=== PATIENT | female | born 1960 | race Caucasian/White ===

== ENCOUNTER 2021-02-07 15:14 | Outpatient (CLI) | payer OTHER, SELFPAY ==
--- NOTE | 2021-02-07 15:21 | MM_ITS ---
WS: [id number] BILATERAL SCREENING DIGITAL MAMMOGRAM WITH CAD HISTORY: SCREENING COMPARISON: 09/22/2016 Bilateral CC and MLO views submitted. Computer aided detection analyzed. Breast composition: There are scattered areas of fibroglandular density. No suspicious masses, microc alcifications or architectural distortion. Benign calcification anterior RIGHT breast. MM/[id number] IMPRESSION: BI-RADS: 2-Benign FOLLOW UP: 1 Year Follow-up
== END 2021-02-07 15:15 | disposition home or self-care (01) ==
PROVIDERS: PCP Physician Assistant; Visit Provider Physician Assistant
DX: Z12.31 Encounter for screening mammogram for malignant neoplasm of breast (principal)
CPT/HCPCS: 77067

== ENCOUNTER 2022-02-23 20:24 | Inpatient (IN) | payer OTHER, SELFPAY ==
[2022-02-23 20:40] VITALS: BMI 25.0
--- NOTE | 2022-02-23 21:13 | ED.C_ITS ---
Documented by User: BLANCA Hannah 02/24/22 01:06 HPI - Psych General: Chief Complaint: Psychiatric Symptoms Stated Complaint: SI Time Seen by Provider: 02/23/22 21:05 History of Present Illness: Patient is a 61-year-old female comes to the ED with worsening depression and SI. Patient has been having symptoms now for the past couple weeks. She has lost her and her family is currently having some issues and her children are fighting. She states that she cannot deal with everything with going on anymore and she needs help. She is having thoughts of SI. Endorses poor sleep, increased depression, loss of interest and anxiety. Patient says she had a past suicidal attempt right after her . She is currently on an antidepressant and takes trazodone at night to help with sleep. Endorses having 3 drinks of alcohol before coming to the ED. Denies any other drug use. Associated symptoms: Reports depression and suicidal ideation Review of Systems Const: Denies: fever(s), chills or fatigue Eyes: Denies: change in vision or eye discomfort ENMT: Denies: throat pain, odynophagia, nasal discharge or nasal congestion Card: Denies: chest pain, palpitations, edema, swelling of feet/ankles, dyspnea on exertion or orthopnea Resp: Denies: dyspnea, productive cough or non-productive cough GI: Denies: abdominal pain, nausea, vomiting, diarrhea, constipation or hematochezia : Denies: flank pain, dysuria or hematuria Musc: Denies: neck pain, back pain or extremity swelling Skin/Breast: Denies: rash or new lesions Neuro: Denies: headache(s), numbness in extremities or weakness in extremities Psych: Reports: anxiety, depression, panic attacks, sleeping less, loss of interest and suicidal ideation [facility] ED PFSH: Medical History (Updated 03/06/22 @ 15:15 by Sosa Page) Anxiety Depression Psychiatric care Surgical History No pertinent past surgical history Physical Exam Const: COMMON NORMALS: patient oriented x3 and alert GENERAL APPEARANCE: cooperative, anxious and odor of alcohol detected HENMT: COMMON NORMALS: normocephalic HEAD & SCALP: normocephalic MOUTH: Normal oral and palatal mucosa present THROAT: posterior oropharynx normal and uvula midline Eye: COMMON NORMALS: Equal, round and reactive pupils present and conjunctivae normal CONJUNCTIVA: Yes conjunctivae normal PUPIL: Yes Equal, round and reactive pupils present Neck/C-Spine: COMMON NORMALS: supple GENERAL: Yes normal visual inspection Resp: COMMON NORMALS: normal respiratory effort, No retractions, No use of accessory muscles and clear to auscultation bilaterally AUSCULTATION: clear to auscultation bilaterally Cardio: COMMON NORMALS: regular rate, regular rhythm, S1 normal heart sound present, S2 normal heart sound present, No gallops present (Cardio), No clicks present (Cardio), No murmurs present (Cardio) and Peripheral pulses 2+ throughout RATE: regular rate RHYTHM: regular rhythm HEART SOUNDS: S1 normal heart sound present and S2 normal heart sound present PERIPHERAL PULSES: Peripheral pulses 2+ throughout GI: COMMON NORMALS: Normal to inspection, nondistended, normoactive bowel sounds present, Soft to palpation, non-tender and no masses PALPATION: Yes Soft to palpation : COMMON NORMALS: Yes no CVA tenderness BLADDER/KIDNEY EXAM: Yes no CVA tenderness Back/Pelvis: COMMON NORMALS: no CVA tenderness Extremity: COMMON NORMALS: normal to inspection Neuro: COMMON NORMALS: patient oriented x3 SENSORIUM/ORIENTATION: Yes alert GAIT: Yes Normal gait present Psych: COMMON NORMALS: mental status grossly normal, Normal thought process present and speech normal APPEARANCE: Yes grossly normal ATTITUDE: Yes engaged ACTIVITY/MOTOR BEHAVIOR: Yes appropriate eye contact SPEECH: Yes normal speech MOOD & AFFECT: Yes anxious and Yes tearful THOUGHT PROCESS: Normal thought process present THOUGHT CONTENT: Yes Suicidality present ATTENTION/CONCENTRATION: Yes attention grossly intact and Yes concentration grossly intact MEMORY/COGNITION: Yes memory grossly intact and Yes cognition grossly intact Skin: GENERAL SKIN EXAM: dry skin Course Consultations: Consultation #1: I contacted Dr. Mijares and told him about patient case and he agreed to have patient admitted to the NPU Vital Signs: Vital signs: Vital Signs Temperature 98.2 F 02/27/22 14:22 Pulse Rate 79 02/27/22 14:22 Respiratory Rate 15 02/27/22 14:22 Blood Pressure 110/62 02/27/22 14:22 Pulse Oximetry 97 02/27/22 14:22 Oxygen Delivery Me thod 02/27/22 14:00 MDM - Psych Medical Decision Making Patient is a 61-year-old female comes to the ED with worsening depression and SI. All prescreening labs performed. Patient was cooperative and wants to be admitted to get help. I contacted Dr. Mijares and told about patient case and he agreed to have patient admitted to the NPU. Dr. Reyes placed the admitting orders. Lab Data I reviewed the patient's lab results. : 02/23/22 22:00 02/23/22 22:00 Laboratory Results WBC 12.2 10^3/uL (4.0-10.0) H 02/23/22 22:00 RBC 5.02 10^6/uL (4.1-5.3) 02/23/22 22:00 Hgb 16.1 g/dL (11.5-15.3) H 02/23/22 22:00 Hct 47.6 % (37.0-47.0) H 02/23/22 22:00 MCV 94.8 fl (81-99) 02/23/22 22:00 MCH 32.1 pg (28.0-34.0) 02/23/22 22:00 MCHC 33.8 g/dL (30.0-36.0) 02/23/22 22:00 RDW 13.8 % (12.1-15.1) 02/23/22 22:00 Plt Count 241 10^3/cmm (130-400) 02/23/22 22:00 MPV 8.8 fL (7.4-10.4) 02/23/22 22:00 Neut % (Auto) 70.5 % 02/23/22 22:00 Lymph % (Auto) 20.9 % 02/23/22 22:00 [place] % (Auto) 6.6 % 02/23/22 22:00 Eos % (Auto) 1.2 % 02/23/22 22:00 Baso % (Auto) 0.5 % 02/23/22 22:00 Neut # (Auto) 8.60 10^3/uL (1.8-7.7) H 02/23/22 22:00 Lymph # (Auto) 2.6 10^3/uL (0.8-4.8) 02/23/22 22:00 [place] # (Auto) 0.8 10^3/uL (0.2-0.9) 02/23/22 22:00 Eos # (Auto) 0.2 10^3/uL (0.0-0.8) 02/23/22 22:00 Baso # (Auto) 0.1 10^3/uL (0.0-0.1) 02/23/22 22:00 Nucleated RBC % (auto) 0 % 02/23/22 22:00 Nucleated RBCs # 0.0 /100WBC 02/23/22 22:00 Sodium 140 mmol/L (136-145) 02/23/22 22:00 Potassium 3.5 mmol/L (3.5-5.1) 02/23/22 22:00 Chloride 105 mmol/L (98-107) 02/23/22 22:00 Carbon Dioxide 20 mmol/L (22-29) L 02/23/22 22:00 Anion Gap 18.5 (5-19) 02/23/22 22:00 BUN 19 mg/dL (6-20) 02/23/22 22:00 Creatinine 0.5 mg/dL (0.5-0.9) 02/23/22 22:00 GFR Calculation 126.3 mL/min (90-130) 02/23/22 22:00 Glucose 111 mg/dL (65-115) 02/23/22 22:00 Calculated Osmolality 293 mOsm/kg (285-295) 02/23/22 22:00 Calcium 9.1 mg/dL (8.5-10.5) 02/23/22 22:00 Total Bilirubin 0.2 mg/dL (0.15-1.2) 02/23/22 22:00 AST 28 U/L (0-32) 02/23/22 22:00 ALT 26 U/L (0-33) 02/23/22 22:00 Alkaline Phosphatase 76 IU/L (35-105) 02/23/22 22:00 Total Protein 7.1 g/dL (6.6-8.7) 02/23/22 22:00 Albumin 3.9 g/dL (3.5-5.2) 02/23/22 22:00 Globulin 3.2 g/dL (1.3-4.6) 02/23/22 22:00 Urine Color Yellow (Yellow) 02/23/22 21:35 Urine Appearance Clear (CLEAR) 02/23/22 21:35 Urine pH 5 (5-7) 02/23/22 21:35 Ur Specific [place] 1.010 (1.005-1.030) 02/23/22 21:35 Urine Protein Neg (Negative) 02/23/22 21:35 Urine Glucose (UA) Norm (Normal) 02/23/22 21:35 Urine Ketones Negative (Negative) 02/23/22 21:35 Urine Blood 2+ (Negative) H 02/23/22 21:35 Urine Nitrate Negative (Negative) 02/23/22 21:35 Urine Bilirubin Neg (Negative) 02/23/22 21:35 Urine Urobilinogen Norm mg/dL (Negative) 02/23/22 21:35 Ur Leukocyte Esterase Negative (Negative) 02/23/22 21:35 Urine RBC 0-4 /hpf (0-2) H 02/23/22 21:35 Urine WBC 0-4 /hpf (0-5) H 02/23/22 21:35 Ur Squamous Epith Cells 0-4 /hpf (0-5) H 02/23/22 21:35 Amorphous Sediment Not Reportable 02/23/22 21:35 Urine Bacteria Trace /hpf (NONE) 02/23/22 21:35 Salicylates 0.7 mg/dL (3-10) L 02/23/22 22:00 Urine Opiates Screen Negative ng/mL (Negative) 02/23/22 21:35 Acetaminophen < 5.0 ug/mL (10-30) L 02/23/22 22:00 Ur Barbiturates Screen Negative ng/mL (Negative) 02/23/22 21:35 Ur Phencyclidine Scrn Negative ng/mL (Negative) 02/23/22 21:35 Ur Amphetamines Screen Negative ng/mL (Negative) 02/23/22 21:35 U Benzodiazepines Scrn Negative ng/mL (Negative) 02/23/22 21:35 Urine Cocaine Screen Negative ng/mL (Negative) 02/23/22 21:35 U Marijuana (THC) Screen Negative ng/mL (Negative) 02/23/22 21:35 Ethyl Alcohol 130 mg/dL (0-10) H 02/23/22 22:00 Discharge Plan Discharge Patient Disposition: Admitted As Inpatient Admit Provider: Ariel Mijares Clinical Impression: Suicidal ideation Condition: Stable Discharge Diet: Advance as tolerated Discharge Activity: Resume usual activity Coding Level of Care Code ED Quick Print Operator for Chg Fwd Exam Comprehensive Documented by User: Onofre Reyes MD 03/07/22 01:20 HPI - Psych 2 General: Chief Complaint: Psychiatric Symptoms Stated Complaint: SI Time Seen by Provider: 02/23/22 21:05 [facility] ED PFSH: Medical History (Updated 03/06/22 @ 15:15 by Sosa Page) Anxiety Depression Psychiatric care Surgical History No pertinent past surgical history Course Vital Signs: Vital signs: Vital Signs Temperature 98.2 F 02/27/22 14:22 Pulse Rate 79 02/27/22 14:22 Respiratory Rate 15 02/27/22 14:22 Blood Pressure 110/62 02/27/22 14:22 Pulse Oximetry 97 02/27/22 14:22 Oxygen Delivery Me thod 02/27/22 14:00 MDM - Psych Medical Decision Making Patient is a 61-year-old female comes to the ED with worsening depression and SI. All prescreening labs performed. Patient was cooperative and wants to be admitted to get help. I contacted Dr. Mijares and told about patient case and he agreed to have patient admitted to the NPU. Dr. Reyes placed the admitting orders. I discussed this case with Marvin RIOS. I reviewed documentation and laboratory studies. Onofre Reyes MD Emergency Medicine Lab Data : 02/23/22 22:00 02/23/22 22:00 Laboratory Results WBC 12.2 10^3/uL (4.0-10.0) H 02/23/22 22:00 RBC 5.02 10^6/uL (4.1-5.3) 02/23/22 22:00 Hgb 16.1 g/dL (11.5-15.3) H 02/23/22 22:00 Hct 47.6 % (37.0-47.0) H 02/23/22 22:00 MCV 94.8 fl (81-99) 02/23/22 22:00 MCH 32.1 pg (28.0-34.0) 02/23/22 22:00 MCHC 33.8 g/dL (30.0-36.0) 02/23/22 22:00 RDW 13.8 % (12.1-15.1) 02/23/22 22:00 Plt Count 241 10^3/cmm (130-400) 02/23/22 22:00 MPV 8.8 fL (7.4-10.4) 02/23/22 22:00 Neut % (Auto) 70.5 % 02/23/22 22:00 Lymph % (Auto) 20.9 % 02/23/22 22:00 [place] % (Auto) 6.6 % 02/23/22 22:00 Eos % (Auto) 1.2 % 02/23/22 22:00 Baso % (Auto) 0.5 % 02/23/22 22:00 Neut # (Auto) 8.60 10^3/uL (1.8-7.7) H 02/23/22 22:00 Lymph # (Auto) 2.6 10^3/uL (0.8-4.8) 02/23/22 22:00 [place] # (Auto) 0.8 10^3/uL (0.2-0.9) 02/23/22 22:00 Eos # (Auto) 0.2 10^3/uL (0.0-0.8) 02/23/22 22:00 Baso # (Auto) 0.1 10^3/uL (0.0-0.1) 02/23/22 22:00 Nucleated RBC % (auto) 0 % 02/23/22 22:00 Nucleated RBCs # 0.0 /100WBC 02/23/22 22:00 Sodium 140 mmol/L (136-145) 02/23/22 22:00 Potassium 3.5 mmol/L (3.5-5.1) 02/23/22 22:00 Chloride 105 mmol/L (98-107) 02/23/22 22:00 Carbon Dioxide 20 mmol/L (22-29) L 02/23/22 22:00 Anion Gap 18.5 (5-19) 02/23/22 22:00 BUN 19 mg/dL (6-20) 02/23/22 22:00 Creatinine 0.5 mg/dL (0.5-0.9) 02/23/22 22:00 GFR Calculation 126.3 mL/min (90-130) 02/23/22 22:00 Glucose 111 mg/dL (65-115) 02/23/22 22:00 Calculated Osmolality 293 mOsm/kg (285-295) 02/23/22 22:00 Calcium 9.1 mg/dL (8.5-10.5) 02/23/22 22:00 Total Bilirubin 0.2 mg/dL (0.15-1.2) 02/23/22 22:00 AST 28 U/L (0-32) 02/23/22 22:00 ALT 26 U/L (0-33) 02/23/22 22:00 Alkaline Phosphatase 76 IU/L (35-105) 02/23/22 22:00 Total Protein 7.1 g/dL (6.6-8.7) 02/23/22 22:00 Albumin 3.9 g/dL (3.5-5.2) 02/23/22 22:00 Globulin 3.2 g/dL (1.3-4.6) 02/23/22 22:00 Urine Color Yellow (Yellow) 02/23/22 21:35 Urine Appearance Clear (CLEAR) 02/23/22 21:35 Urine pH 5 (5-7) 02/23/22 21:35 Ur Specific [place] 1.010 (1.005-1.030) 02/23/22 21:35 Urine Protein Neg (Negative) 02/23/22 21:35 Urine Glucose (UA) Norm (Normal) 02/23/22 21:35 Urine Ketones Negative (Negative) 02/23/22 21:35 Urine Blood 2+ (Negative) H 02/23/22 21:35 Urine Nitrate Negative (Negative) 02/23/22 21:35 Urine Bilirubin Neg (Negative) 02/23/22 21:35 Urine Urobilinogen Norm mg/dL (Negative) 02/23/22 21:35 Ur Leukocyte Esterase Negative (Negative) 02/23/22 21:35 Urine RBC 0-4 /hpf (0-2) H 02/23/22 21:35 Urine WBC 0-4 /hpf (0-5) H 02/23/22 21:35 Ur Squamous Epith Cells 0-4 /hpf (0-5) H 02/23/22 21:35 Amorphous Sediment Not Reportable 02/23/22 21:35 Urine Bacteria Trace /hpf (NONE) 02/23/22 21:35 Salicylates 0.7 mg/dL (3-10) L 02/23/22 22:00 Urine Opiates Screen Negative ng/mL (Negative) 02/23/22 21:35 Acetaminophen < 5.0 ug/mL (10-30) L 02/23/22 22:00 Ur Barbiturates Screen Negative ng/mL (Negative) 02/23/22 21:35 Ur Phencyclidine Scrn Negative ng/mL (Negative) 02/23/22 21:35 Ur Amphetamines Screen Negative ng/mL (Negative) 02/23/22 21:35 U Benzodiazepines Scrn Negative ng/mL (Negative) 02/23/22 21:35 Urine Cocaine Screen Negative ng/mL (Negative) 02/23/22 21:35 U Marijuana (THC) Screen Negative ng/mL (Negative) 02/23/22 21:35 Ethyl Alcohol 130 mg/dL (0-10) H 02/23/22 22:00 Discharge Plan Discharge Patient Disposition: Admitted As Inpatient Admit Provider: Ariel Mijares Clinical Impression: Suicidal ideation Condition: Stable Discharge Diet: Advance as tolerated Discharge Activity: Resume usual activity Coding Level of Care Code ED Quick Print Operator for Doyle Fwd Exam Comprehensive
[2022-02-23] MEDS: LORazepam 1 mg Tablet PO (21:44)
[2022-02-23] MEDS: nicotine 14 mg Patch 1 PATCH TRANSDERMA (21:45)
[2022-02-23 21:52] LABS: Add Urine Culture? No; Add Urine Microscopic? YES; Amphetamines Screen Urine Negative (Negative); Bacteria Urine TRACE /hpf; Barbiturates Screen Urine Negative (Negative); Benzodiazepines Screen Urine Negative (Negative); Bilirubin Urine Neg (Negative); Blood Urine 2+ (Negative); Cocaine Screen Urine Negative (Negative); Glucose Urine UA Norm (Normal); Ketones Urine Negative (Negative); Leukocyte Esterase Urine Negative (Negative); Nitrate Urine Negative (Negative); Opiate Screen Urine Negative (Negative); PCP Screen Urine Negative (Negative); Protein Urine Neg (Negative); RBC Urine 0-4 /hpf (0-2); Squamous Epithelial Cell Urine 0-4 /hpf (0-5); THC Screen Urine Negative (Negative); Urine Appearance Clear (CLEAR); Urine Color Yellow (Yellow); Urobilinogen Urine Norm (Negative); WBC Urine 0-4 /hpf (0-5); pH Urine 5 (5-7)
[2022-02-23 22:03] LABS: Basophils # 0.1 10^3/uL (0.0-0.1); Basophils % 0.5 %; Eosinophils # 0.2 10^3/uL (0.0-0.8); Eosinophils % 1.2 %; Hematocrit 47.6 % (37.0-47.0); Hemoglobin 16.1 g/dL (11.5-15.3); Lymphocytes # 2.6 10^3/uL (0.8-4.8); Lymphocytes % 20.9 %; Mean Corpuscular HGB Conc 33.8 g/dL (30.0-36.0); Mean Corpuscular Hemoglobin 32.1 pg (28.0-34.0); Mean Corpuscular Volume 94.8 fl (81-99); Mean Platelet Volume 8.8 fL (7.4-10.4); Monocytes # 0.8 10^3/uL (0.2-0.9); Monocytes % 6.6 %; Neutrophils % 70.5 %; Nucleated Red Blood Cells % 0 %; Platelet Count 241 10^3/cmm (130-400); Red Blood Count 5.02 10^6/uL (4.1-5.3); Red Cell Distribution Width 13.8 % (12.1-15.1); White Blood Count 12.2 10^3/uL (4.0-10.0)
[2022-02-23 22:25] LABS: Alanine Aminotransferase 26 U/L (0-33); Albumin Level 3.9 g/dL (3.5-5.2); Alcohol Level 130 mg/dL (0-10); Alkaline Phosphatase 76 IU/L (35-105); Anion Gap 18.5 (5-19); Aspartate Amino Transferase 28 U/L (0-32); Blood Urea Nitrogen 19 mg/dL (6-20); Calcium 9.1 mg/dL (8.5-10.5); Carbon Dioxide 20 mmol/L (22-29); Chloride 105 mmol/L (98-107); Globulin 3.2 g/dL (1.3-4.6); Glomerular Filtration Rate 126.3 mL/min (90-130); Glucose 111 mg/dL (65-115); Osmolality Calculated 293 mOsm/kg (285-295); Potassium 3.5 mmol/L (3.5-5.1); Salicylate 0.7 mg/dL (3-10); Sodium 140 mmol/L (136-145); Total Bilirubin 0.2 mg/dL (0.15-1.2); Total Protein 7.1 g/dL (6.6-8.7)
[2022-02-23 22:26] LABS: Acetaminophen < 5.0 ug/mL (10-30)
[2022-02-23] MEDS: ketorolac 30 mg/mL INJ IM (23:39)
[2022-02-23 23:44] VITALS: BP 123/64; PULSE 95; RESP 16; O2SAT 95
[2022-02-23 23:58] VITALS: BP 113/69; PULSE 93; RESP 16; TEMP 36.7; O2SAT 98
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
[2022-02-24 06:00] VITALS: BP 125/77; PULSE 79; RESP 17; TEMP 36.6; O2SAT 96
[2022-02-24] MEDS: thiamine 100 mg Tablet PO (08:26)
[2022-02-24] MEDS: BuSPIRONE 10 mg Tablet 5 MG PO (08:26)
[2022-02-24] MEDS: atorvastatin 40 mg Tablet 20 MG PO (08:26)
[2022-02-24] MEDS: meloxicam 7.5 mg tablet 15 MG PO (08:26)
[2022-02-24] MEDS: multivitamin therapeutic Tablet 1 TAB PO (08:26)
[2022-02-24] MEDS: folic acid 1 mg Tablet PO (08:26)
[2022-02-24] MEDS: venlafaxine ER (24HR) 150 mg Capsule PO (08:26)
[2022-02-24] MEDS: CELEcoxib 200 mg Capsule PO (08:26)
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
[2022-02-24 14:00] VITALS: BP 121/77; PULSE 88; RESP 16; TEMP 36.8; O2SAT 95
[2022-02-24 20:36] VITALS: BP 144/72; PULSE 78; RESP 16; O2SAT 95
[2022-02-24] MEDS: quetiapine 100 mg Tablet PO (20:56)
[2022-02-24] MEDS: fixodent 39 gm Tube 1 APPLIC DENTAL (20:57)
[2022-02-24] MEDS: efferdent effervescent 1 EACH DENTAL (20:57)
[2022-02-25 05:47] VITALS: BP 109/65; PULSE 70; RESP 16; TEMP 36.6; O2SAT 92
[2022-02-25] MEDS: meloxicam 7.5 mg tablet 15 MG PO (09:36)
[2022-02-25] MEDS: folic acid 1 mg Tablet PO (09:36)
[2022-02-25] MEDS: atorvastatin 40 mg Tablet 20 MG PO (09:36)
[2022-02-25] MEDS: thiamine 100 mg Tablet PO (09:37)
[2022-02-25] MEDS: multivitamin therapeutic Tablet 1 TAB PO (09:37)
[2022-02-25] MEDS: CELEcoxib 200 mg Capsule PO (09:37)
[2022-02-25] MEDS: venlafaxine ER (24HR) 75 mg Capsule 225 MG PO (09:39)
[2022-02-25 14:00] VITALS: BP 116/73; PULSE 80; RESP 18; TEMP 36.6; O2SAT 95
--- NOTE | 2022-02-25 14:19 | P.NPUPN_ITS ---
Subjective NPU Subjective: 61-year-old white female admitted with worsening depression and alcohol abuse who reported suicidal ideation and chronic generalized anxiety. Patient continue to report depressed mood. Patient reported that she had been attempting to cut down on alcohol consumption. She reported no feelings of worthlessness but did report some sense of hopelessness. She reported no active thoughts of hurting herself today. She continued to report chronic issues with managing her pain. She had reported improved ability to fall asleep last night. She continued to report evidence of low energy and diminished motivation. Mental Status Exam MSE Comments: She is a pleasant white female who appeared her stated age. She had fair eye contact. Her gait was normal. There was no evidence of any abnormal involuntary motor movements tics or tremors appreciated. There was mild psychomotor retardation that was evident. She was alert and oriented to person place and time. Her attention span appeared fair. Her mood remained depressed and her affect was mood congruent and restricted in range. There is no clear evidence of delusional thinking. She did not appear to be responding to internal stimuli. Her insight was poor. Her judgment was poor. Her impulse control appeared poor as well. Vitals/I&O/Wt Last Vital Signs Temp 98 F 02/25/22 14:00 Pulse 80 02/25/22 14:00 Resp 18 02/25/22 14:00 BP 116/73 02/25/22 14:00 Pulse Ox 95 02/25/22 14:00 O2 Del Method 02/25/22 14:00 Weight last 48 hrs Weight 72.575 kg Data NPU : 02/23/22 22:00 02/23/22 22:00 A&P Assessment and plan (1) Major depressive disorder, recurrent episode: Status: Acute (2) Generalized anxiety disorder: Status: Acute (3) Suicidal ideation: Status: Acute (4) Alcohol abuse: Status: Acute Plan This is a 61-year-old white female who has been having constant reminders regarding a period of time approximately 3 years ago where she lost 3 family members for various different reasons over the last 2 years with increased decompensation leading to depression and alcohol abuse. 1. We will continue her Meloxicam, Atorvastatin and Celebrex as prescribed. Increase Seroquel 150mg at night and continue Effexor XR 225mg in am 2. Encourage individual, group and milieu therapy 3. Continue q-15 minute check for safety 4. Recommend sober living treatment at the highest level of care to which the patient is willing to commit. Involuntary Hold Information 96 Hour Hold: 96 Hour Involuntary Admission: No Attestations NPU 2 Medical Necessity Statement*: Psychiatric hospitalization is medically necessary to prevent access to lethal means, to reevaluate medication and to coordinate a safe discharge with likely length of stay is three to five days. Coding Level of Care Code Established Pt Acute Softball Core Molder for g Fwd Patient Type Established History Problem Focused Exam Problem Focused Medical Decision Making Straight Forward Diagnoses Major depressive disorder, recurrent episode F33.9 Generalized anxiety disorder F41.1 Suicidal ideation R45.851 Alcohol abuse F10.10
[2022-02-25 20:56] VITALS: BP 135/79; PULSE 76; RESP 16; TEMP 36.8; O2SAT 97
[2022-02-25] MEDS: quetiapine 300 mg Tablet 150 MG PO (21:21)
[2022-02-26 06:00] VITALS: BP 111/73; PULSE 81; RESP 16; TEMP 36.6; O2SAT 94
[2022-02-26] MEDS: folic acid 1 mg Tablet PO (08:52)
[2022-02-26] MEDS: CELEcoxib 200 mg Capsule PO (08:52)
[2022-02-26] MEDS: multivitamin therapeutic Tablet 1 TAB PO (08:52)
[2022-02-26] MEDS: meloxicam 7.5 mg tablet 15 MG PO (08:52)
[2022-02-26] MEDS: atorvastatin 40 mg Tablet 20 MG PO (08:53)
[2022-02-26] MEDS: thiamine 100 mg Tablet PO (08:53)
[2022-02-26] MEDS: venlafaxine ER (24HR) 75 mg Capsule 225 MG PO (08:54)
[2022-02-26] MEDS: nicotine 21 mg Patch 1 PATCH TRANSDERMA (11:18)
[2022-02-26 14:00] VITALS: BP 105/61; PULSE 80; RESP 18; TEMP 36.6; O2SAT 96
--- NOTE | 2022-02-26 14:20 | P.NPUPN_ITS ---
Subjective NPU Subjective: 61-year-old white female admitted with worsening depression and alcohol abuse who reported suicidal ideation and chronic generalized anxiety. Patient continue to report depressed mood and reports that her alcohol use has been consistently high on daily basis for over 10 years. She minimized effects of alcohol on her wellbeing. Patient reports chronic problems with apathy and amotivation. She reported having depressed mood for weeks at a time. She reported often feeling overwhelmed by having to manage her sons problems as he has been recently disabled. She had reported some improvement in sleep on the Seroquel and 150 mg at night. She had continued to report some anxiety and repo rted having significant pain issues. Mental Status Exam MSE Comments: She is a pleasant white female who appeared her stated age. She had fair eye contact. Her gait was normal. There was no evidence of any abnormal involuntary motor movements tics or tremors appreciated. There was mild psychomotor retardation that was evident. She was alert and oriented to person place and time. Her attention span appeared fair. Her mood was described as depressed and her affect was mood congruent and restricted in range. There is no clear evidence of delusional thinking. She did not appear to be responding to internal stimuli. Her insight was poor. Her judgment was poor. Her impulse control appeared poor as well. Vitals/I&O/Wt Last Vital Signs Temp 98 F 02/26/22 14:00 Pulse 80 02/26/22 14:00 Resp 18 02/26/22 14:00 BP 105/61 02/26/22 14:00 Pulse Ox 96 02/26/22 14:00 O2 Del Method 02/26/22 14:00 Weight last 48 hrs Weight 68.039 kg Data NPU : 02/23/22 22:00 02/23/22 22:00 A&P Assessment and plan (1) Major depressive disorder, recurrent episode: Status: Acute (2) Generalized anxiety disorder: Status: Acute (3) Suicidal ideation: Status: Acute (4) Alcohol abuse: Status: Acute Plan This is a 61-year-old white female who has been having constant reminders regarding a period of time approximately 3 years ago where she lost 3 family members for various different reasons over the last 2 years with increased decompensation leading to depression and alcohol abuse. 1. We will continue her Meloxicam, Atorvastatin and Celebrex as prescribed. Continue Seroquel 150mg at night and continue Effexor XR 225mg in am 2. Encourage individual, group and milieu therapy 3. Continue q-15 minute check for safety 4. Recommend sober living treatment at the highest level of care to which the patient is willing to commit. 5) d/c Buspirone 6) d/c Trazodone Involuntary Hold Information 96 Hour Hold: 96 Hour Involuntary Admission: No Attestations NPU Medical Necessity Statement*: Psychiatric hospitalization is medically necessary to prevent access to lethal means, to reevaluate medication and to coordinate a safe discharge with likely length of stay is three to five days. Coding Level of Care Code Established Pt Acute Manufacturing Industrial Engineer for Ishmaelg Fwd Patient Type Established History Problem Focused Exam Problem Focused Medical Decision Making Straight Forward Diagnoses Major depressive disorder, recurrent episode F33.9 Generalized anxiety disorder F41.1 Suicidal ideation R45.851 Alcohol abuse F10.10
[2022-02-26] MEDS: acetaminophen 325 mg Tablet 650 MG PO (20:45)
[2022-02-26] MEDS: quetiapine 300 mg Tablet 150 MG PO (20:46)
[2022-02-26 21:27] VITALS: BP 122/84; PULSE 66; RESP 16; TEMP 36.9; O2SAT 97
[2022-02-27 06:00] VITALS: BP 109/80; PULSE 82; RESP 16; TEMP 37.2; O2SAT 95
[2022-02-27] MEDS: meloxicam 7.5 mg tablet 15 MG PO (08:06)
[2022-02-27] MEDS: multivitamin therapeutic Tablet 1 TAB PO (08:06)
[2022-02-27] MEDS: folic acid 1 mg Tablet PO (08:06)
[2022-02-27] MEDS: CELEcoxib 200 mg Capsule PO (08:06)
[2022-02-27] MEDS: thiamine 100 mg Tablet PO (08:06)
[2022-02-27] MEDS: atorvastatin 40 mg Tablet 20 MG PO (08:06)
[2022-02-27] MEDS: venlafaxine ER (24HR) 75 mg Capsule 225 MG PO (09:01)
[2022-02-27 14:00] VITALS: BP 110/62; PULSE 79; RESP 15; TEMP 36.8; O2SAT 97
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
[2022-02-27 14:22] VITALS: BP 110/62; PULSE 79; RESP 15; TEMP 36.8; O2SAT 97
== END 2022-02-27 15:30 | disposition home or self-care (01) | DRG 885 ==
LOC: ER 21:49 → NP 23:45
PROVIDERS: Admitting Provider Psychiatry & Neurology Psychiatry; Emergency Provider Physician Assistant; PCP Physician Assistant; Visit Provider Psychiatry & Neurology Psychiatry
DX: F33.9 Major depressive disorder, recurrent, unspecified (principal); R45.851 Suicidal ideations; F41.1 Generalized anxiety disorder; F17.210 Nicotine dependence, cigarettes, uncomplicated; F10.10 Alcohol abuse, uncomplicated
CPT/HCPCS: 80053; 80306; 80307; 81001; 85025; 96372; 97150; 97165; 99285; J1885

== ENCOUNTER 2022-10-17 10:33 | Outpatient (CLI) | payer OTHER, SELFPAY ==
--- NOTE | 2022-10-17 10:42 | MM_ITS ---
WS: [id number] BILATERAL SCREENING DIGITAL TOMOSYNTHESIS MAMMOGRAM WITH CAD HISTORY: SCREENING COMPARISON: 02/07/2021, 09/22/2016 Bilateral CC and MLO views with tomosynthesis and synthetic mammography submitted. Computer aided det ection analyzed. Breast composition: There are scattered areas of fibroglandular density. No suspicious masses, microc alcifications or architectural distortion. MM/[place] [id number] IMPRESSION: BI-RADS: 1-Negative FOLLOW UP: 1 Year Follow-up
== END 2022-10-17 10:34 | disposition home or self-care (01) ==
LOC: RAD 10:36
PROVIDERS: PCP Physician Assistant; Visit Provider Physician Assistant
DX: Z12.31 Encounter for screening mammogram for malignant neoplasm of breast (principal)
CPT/HCPCS: 77063; 77067

== ENCOUNTER 2023-11-27 08:08 | Outpatient (CLI) | payer OTHER, SELFPAY ==
--- NOTE | 2023-11-27 08:11 | CT_ITS ---
WS: [id number] LDCT LUNG CANCER SCREENING HISTORY: NICOTINE DEPENDENCE TECHNIQUE: Axial imaging performed from the apices to 1 cm below the costophrenic angles. Coronal and sagittal reformats are submitted with axial MIP series. All CT scans at [facility] use at least one of these dose optimization techniques: automated exposure control; mA and/or kV adjustment per patient size (includes targeted exams where dose is matched to clinical indication); or iterativ e reconstruction. DLP: 61.82 mGy.cm DIvol: Mean CTDIvol: 1.30 (mGy) COMPARISON: None available. Diagnostic quality: Satisfactory Lungs: Pulmonary hyperinflation. No mass or pulmonary nodule. Benign granuloma LEFT lower lobe. Minim al bronchiectasis along the medial RIGHT middle lobe. Heart: Normal size heart with no pericardial effusion.. Other findings: Mild atherosclerosis aorta. No adenopathy. Small hiatal hernia. CT/CT lung screening [id number] IMPRESSION: LUNG-RADS: 1-Negative FOLLOW UP: 12 Month: Continue annual screening with LDCT OTHER FINDINGS (S MODIFIER): None.
--- NOTE | 2023-11-27 08:11 | MM_ITS ---
WS: [id number] BILATERAL SCREENING DIGITAL TOMOSYNTHESIS MAMMOGRAM WITH CAD HISTORY: SCREENING COMPARISON: 10/17/2022, 02/07/2021 Bilateral CC and MLO views with tomosynthesis and synthetic mammography submitted. Computer aided det ection analyzed. Breast composition: There are scattered areas of fibroglandular density. No suspicious masses, microc alcifications or architectural distortion. Benign calcification in the anterior RIGHT breast. MM/[place] [id number] IMPRESSION: BI-RADS: 2-Benign FOLLOW UP: 1 Year Follow-up
== END 2023-11-27 08:09 | disposition home or self-care (01) ==
LOC: RAD 08:08
PROVIDERS: PCP Physician Assistant; Visit Provider Physician Assistant
DX: Z12.31 Encounter for screening mammogram for malignant neoplasm of breast (principal); Z12.2 Encounter for screening for malignant neoplasm of respiratory organs; F17.200 Nicotine dependence, unspecified, uncomplicated
CPT/HCPCS: 71271; 77063; 77067

== ENCOUNTER → 2023-12-25 10:11 | Outpatient (BNVA) | payer OTHER, SELFPAY | PROVIDERS: PCP Physician Assistant; Visit Provider Podiatrist Foot & Ankle Surgery | DX: L84 Corns and callosities; Q82.8 Other specified congenital malformations of skin | CPT/HCPCS: 73630 ==

== ENCOUNTER 2024-02-27 05:43 | Day surgery (SDC) | payer OTHER, SELFPAY ==
[2024-02-27] VITALS (10 sets, daily range): BP systolic 109–146; BP diastolic 69–96; PULSE 73–86; RESP 14–18; TEMP 36.4–37.2; O2SAT 93–97; BMI 28.1
[2024-02-27] MEDS: acetaminophen 1,000 MG/100 ML PIGGYBACK 400 MG IV (06:21)
[2024-02-27] MEDS: sodium chloride 0.9% 1,000 ML 30 ML IV (06:21)
[2024-02-27] MEDS: gabapentin 300 mg Capsule PO (06:22)
--- NOTE | 2024-02-27 06:52 | W.PM.OPSUD ---
Surgery/Procedure H&P Update DATE OF PROCEDURE: February 27, 2024 DATE H&P PERFORMED: 02/12/24 H&P UPDATE INFORMATION: I have reviewed H&P completed within last 30 days, I have examined patient prior to procedure, No changes to prior documentation and H&P is in [facility] EMR on date indicated PREOP DIAGNOSIS: Left foot hammertoe PLANNED PROCEDURE: Operation Date: 02/27/24 07:00 Proposed Procedures p Left foot 5th digit hammertoe repair(Left) - Yuval Miller DPM
--- NOTE | 2024-02-27 07:01 | ANES.PREANE2 ---
Pre-Anesthetic Assessment Height/Weight: Height 1.7 m Weight 81.647 kg Temp Pulse Resp BP Pulse Ox O2 Del Method 97.8 F 86 17 146/96 97 Room Air 02/27/24 06:07 02/27/24 06:07 02/27/24 06:07 02/27/24 06:07 02/27/24 06:07 02/27/24 06:08 Preop Diagnosis: Left foot hammertoe Operation Date: 02/27/24 07:00 Proposed Procedures p Left foot 5th digit hammertoe repair(Left) - Yuval Miller DPM Familial anesthetic complications: None Was Beta Rg taken within 24 hours: N/A Was Clonidine taken within 24 hours: N/A Last intake: Intake Last Liquid Date 02/26/24 Last Liquid Time 18:00 Last Solid Date 02/26/24 Last Solid Time 18:00 Social No alcohol and No tobacco Exam alert, oriented x 3, clear to auscultation bilaterally and regular rate & rhythm Airway Mallampati: Class II Dentition: other (missing) GI Gastroesophageal Reflux Disease Metabolic Hyperlipidemia Anesthetic Plan ASA status: 2 Anesthesia: MAC Risk of > 500 ml blood loss (7ml/kg in children): No Medications/Allergies Home Medications Medication Instructions Recorded Confirmed Last Taken Type atorvastatin 20 mg tablet 20 mg PO DAILY 02/24/22 02/26/24 02/26/24 History celecoxib 200 mg capsule 200 mg PO DAILY 02/24/22 02/26/24 02/26/24 History thiamine mononitrate (vit B1) 100 100 mg PO DAILY #30 tabs 02/27/22 02/26/24 02/26/24 Rx mg tablet (Vitamin B-1 (mononitrate)) venlafaxine 150 mg 150 mg PO QAM #90 caps 02/07/24 02/26/24 02/26/24 Rx capsule,extended release 24 hr omeprazole 40 mg capsule,delayed 40 mg PO DAILY 02/26/24 02/26/24 02/26/24 History release tramadol 50 mg tablet 50 mg PO Q6H PRN pain #16 tabs 02/27/24 Unknown Rx Allergies Allergy/AdvReac Type Severity Reaction Status Date / Time No Known Allergies Allergy Verified 02/27/24 06:05 Current Medications Generic Name Dose Route Start Last Admin Trade Name Freq PRN Reason Stop Dose Admin Sodium Chloride 1,000 mls @ 30 mls/hr 02/27/24 06:00 02/27/24 06:21 Sodium Chloride 0.9% IV 02/28/24 05:59 30 mls/hr .Q24H DAVON Administration PFSH Anesthesia Medical History MDD (major depressive disorder), recurrent, in partial remission Major depressive disorder in partial remission Psychiatric care Anxiety Depression Surgical History No pertinent past surgical history Social History Smoking and tobacco/nicotine status: never used tobacco/nicotine Data Anesthesia Cardiac Studies: No Data to Display
[2024-02-27] MEDS: ceFAZolin 2,000 mg SDV 2000 MG IVP (07:08)
[2024-02-27] MEDS: BUPivacaine 0.5% INJ 30 mL 20 ML INJECTION (07:20)
--- NOTE | 2024-02-27 07:41 | W.PM.BPON ---
Date of procedure: 02/27/2024 Surgeon name: Barbara SureshPCole Composing Machine Operator/Tender(s) name(s): Shayla Garcia Procedure(s) performed: Derotational arthroplasty left foot fifth digit Description of findings: Hammertoe fifth digit left foot Estimated blood loss: 2 cc Tourniquet time: 16 minutes Specimen(s) removed: None Post-operative diagnosis: Hammertoe fifth digit left foot
--- NOTE | 2024-02-27 07:42 | PM.OP ---
Operative Report Date of procedure: February 27, 2024 Pre-op diagnosis: Hammertoe fifth digit left foot Post-op diagnosis: Same Post-op findings: PIPJ contracture left foot fifth digit Procedure done: Left foot fifth digit derotational arthroplasty CPT Surgeon: Yvual Miller DPM Personnel Consultant: Jose Mcguire Estimated blood loss: 2 cc 16 minutes Complications: None Findings: See above Procedure: Patient is a 63-year-old female that has a history of left foot fifth digit hammertoe, painful. The patient has had the aforementioned chief complaint for some time. Conservative treatment measures have been attempted and the patient has opted for surgical intervention at this time. A lengthy discussion regarding the procedure, including risks and complications has been had with the patient and is noted in the recent clinic note. Written and verbal consent have been obtained. All patient questions have been answered to the patient?s satisfaction. No written or verbal guarantees have been given or implied. The patient has been NPO since midnight. The history has been reviewed and the history and physical is current. The signed consent was confirmed and placed in the patient chart. Patient imaging has been reviewed and is consistent with the diagnosis. Under mild sedation, the patient was brought into the operating room and left on the gurney in the supine position. IV antibiotics were given by the anesthesia team as preoperative surgical prophylaxis. General sedation was then performed by the anesthesiateam. A local field block was performed using 0.5% Marcaine plain. A pneumatic tourniquet was then placed about the left ankle. The operative extremity was then prepped and draped in the usual fashion. The extremity was then elevated and exsanguinated before the tourniquet was inflated to 250 mmHg. After inflation, the following procedure was then performed. Attention was directed to the fifth digit of the left foot where an elliptical incision was made overlying the proximal phalangeal joint from a proximal lateral to distal medial orientation using a #15 blade. Dissection was carried down to the level of the extensor tendon which was transected transversely at the level of the proximal interphalangeal joint. Dissection was carried out to expose the head of the proximal phalanx. Sagittal bone saw was used to remove the head of the proximal phalanx and was passed from the operative field. The site was then irrigated with copious amounts of sterile saline before the extensor tendon was reapproximated using 4-0 Vicryl. The elliptical incision was closed in derotational fashion using 4-0 nylon. The tourniquet was let down good hyperemic response was noted to all digits of the left foot. The incision site was dressed with Xeroform, 4 x 4 gauze, Kerlix and Coban. The patient tolerated the procedure and anesthesia well and without complication. The patient was transported from the operating room to the recovery room with vital signs stable and vascular status intact to all digits of the left foot. The patient was given both written and verbal instructions to remain weightbearing as tolerated in postoperative shoe to the operative extremity, to keep dressings/splint clean, dry and intact and to take pain medication as directed. The patient will follow-up in the outpatient setting at their scheduled appointment. The patient was discharged with my personal number and was instructed to call if any questions or issues should arise. They were discharged home once anesthesia criteria was met.
--- NOTE | 2024-02-27 08:29 | SUR.PHASEII ---
0829-Patient sitting up in bed talking to family. Eating crackers and drinking coffee. Denies pain at this time, VS stable
[2024-02-27] MEDS: TRAMadol 50 mg Tablet PO (08:49)
--- NOTE | 2024-02-27 09:00 | ANE.PACU2 ---
Inpatient post-anesthesia follow up: Airway intact: Yes Vital signs: Temperature 97.9 F Pulse Rate 77 Respiratory Rate 17 Blood Pressure 122/77 Pulse Oximetry 94 Oxygen Delivery Me thod Room Air Oxygen Flow Rate Fraction of Inspir ed Oxygen Hydration adequate: Yes Nausea and vomiting: No Pain level: 1 Mental status: Baseline
== END 2024-02-27 09:03 | disposition home or self-care (01) ==
PROVIDERS: PCP Physician Assistant; Visit Provider Podiatrist Foot & Ankle Surgery
PROC: (CPT 28285; principal; 2024-02-27 07:00)
DX: M20.42 Other hammer toe(s) (acquired), left foot (principal); K21.9 Gastro-esophageal reflux disease without esophagitis; E78.5 Hyperlipidemia, unspecified; F41.9 Anxiety disorder, unspecified; F32.A Depression, unspecified
CPT/HCPCS: 28285; J0131; J0690; J1100; J2250; J2371; J2405; J2704; J3010; J3490; J7030

== ENCOUNTER → 2024-03-12 12:43 | Outpatient (BNVA) | payer OTHER, SELFPAY | PROVIDERS: PCP Physician Assistant; Visit Provider Podiatrist Foot & Ankle Surgery | DX: Z98.890 Other specified postprocedural states (principal); M20.42 Other hammer toe(s) (acquired), left foot | CPT/HCPCS: 73630 ==

== ENCOUNTER 2024-06-26 14:49 | Outpatient (CLI) | payer OTHER, SELFPAY | END 2024-06-26 14:50 | disposition home or self-care (01) | LOC: SLEEP 14:51 | PROVIDERS: PCP Physician Assistant; Visit Provider Physician Assistant | DX: G47.33 Obstructive sleep apnea (adult) (pediatric) (principal); G47.36 Sleep related hypoventilation in conditions classified elsewhere | CPT/HCPCS: G0399 ==

== ENCOUNTER 2024-07-25 09:13 | Emergency (ER) | payer OTHER, SELFPAY ==
[2024-07-25 09:22] VITALS: BP 147/98; PULSE 105; RESP 18; TEMP 36.6; O2SAT 98
--- NOTE | 2024-07-25 09:28 | W.ED.BACK ---
HPI - Back Pain/Injury General: Chief Complaint: Back Pain/Injury Stated Complaint: abd pain (sent by ) Time Seen by Provider: 07/25/24 09:24 Source: patient Mode of arrival: ambulatory Limitations: no limitations History of Present Illness: Patient is a 63-year-old female presents to ED today with a complaint of left flank pain over the past two weeks or so. Pain has been colicky and will sometimes subside for a day or so before returning. She states pain seems to start around her left flank and wraps around. She is not having any burning with urination. She has had some urinary urgency with small voids. She has not noticed any hematuria. She has no history of kidney or ureterolithiasis. She was reportedly seen at [facility] and referred to the emergency department. She is not running fevers. She is not having any vomiting or diarrhea. She has not noticed any rash to her flank or torso. Onset (ago): day(s) Timing: constant Severity: severe Similar Symptoms Previously: No Quality: sharp Location: left flank Radiation: abdomen Exacerbating factors: none Relieving factors: none Associated symptoms: Reports abdominal pain and urinary urgency; Deny chills, dysuria, fatigue, fever(s), nausea or vomiting Work related injury: No Related Data Home Medications Medication Instructions Recorded Confirmed atorvastatin 20 mg tablet 20 mg PO DAILY 02/24/22 07/25/24 celecoxib 200 mg capsule 200 mg PO DAILY 02/24/22 07/25/24 omeprazole 40 mg capsule,delayed 40 mg PO DAILY 02/26/24 07/25/24 release acyclovir 400 mg tablet 400 mg PO BID 07/25/24 07/25/24 cetirizine 10 mg tablet 10 mg PO DAILY 07/25/24 07/25/24 fluticasone propionate 50 2 spray intranasal DAILY 07/25/24 07/25/24 mcg/actuation nasal spray,suspension (24 Hour Allergy Relief) Allergies Allergy/AdvReac Type Severity Reaction Status Date / Time No Known Allergies Allergy Verified 03/12/24 12:40 Review of Systems Const: Denies: fever(s), chills, body aches, fatigue or malaise Card: Denies: chest pain Resp: Denies: dyspnea GI: Reports: abdominal pain; Denies: nausea, vomiting or diarrhea : Reports: flank pain and urinary urgency; Denies: difficulty voiding, dysuria, urinary frequency, vaginal odor, vaginal bleeding, vaginal discharge or pelvic pain Musc: Denies: neck pain, extremity pain, extremity swelling, joint pain or joint swelling Skin/Breast: Denies: rash Neuro: Denies: headache(s) or dizziness PFS ED PFSH: Medical History MDD (major depressive disorder), recurrent, in partial remission Major depressive disorder in partial remission Psychiatric care Anxiety Depression Surgical History No pertinent past surgical history Social History Smoking and tobacco/nicotine status: never used tobacco/nicotine Physical Exam Const: COMMON NORMALS: no acute distress, average body habitus, patient oriented x3, no limitations, alert and well nourished Eye: COMMON NORMALS: no scleral icterus Resp: COMMON NORMALS: normal respiratory effort and clear to auscultation bilaterally AUSCULTATION: clear to auscultation bilaterally Cardio: COMMON NORMALS: regular rate and regular rhythm RATE: regular rate RHYTHM: regular rhythm GI: COMMON NORMALS: Normal to inspection, nondistended, normoactive bowel sounds present, Soft to palpation, non-tender, No hepatosplenomegaly present and no masses PALPATION: Yes Soft to palpation and Yes No hepatosplenomegaly present : BLADDER/KIDNEY EXAM: Yes CVA tenderness on the left (and inferiorly) Back/Pelvis: COMMON NORMALS: thoracic and lumbar spine normal to inspection, no thoracic nor lumbar tenderness, thoraco-lumbar ROM normal and straight leg raise negative bilaterally GENERAL BACK: Yes CVA tenderness Extremity: GENERAL: Yes normal exam except as noted Neuro: COMMON NORMALS: patient oriented x3, moves all extremities, no focal motor deficits, no sensory deficits noted and gait normal SENSORIUM/ORIENTATION: Yes alert Skin: COMMON NORMALS: no rashes or lesions noted GENERAL SKIN EXAM: no rashes or lesions noted Course Vital Signs: Vital signs: Vital Signs Temperature 97.8 F 07/25/24 09:22 Pulse Rate 79 07/25/24 10:54 Respiratory Rate 16 07/25/24 10:54 Blood Pressure 134/82 07/25/24 10:54 Pulse Oximetry 96 07/25/24 10:54 Oxygen Delivery Me thod Room Air 07/25/24 10:54 MDM - Back Pain/Injury Medical Decision Making Vital signs are stable. Blood work overall is unremarkable. She has a normal white count. Chemistry panel is nonactionable. Her UA is clear. CT scan is essentially unremarkable. No obvious etiology for her left flank discomfort. She does have severe central canal stenosis at multilevels in her lumbar spine. At this time patient will be allowed discharge. She has plans to follow-up with her primary care provider in the next week or two. Return to ED precautions given. Medical Records I reviewed the patient's medical records. Labs I reviewed the patient's lab results. 07/25/24 09:42 07/25/24 09:42 Radiology Impressions Abdomen/Pelvis CT 07/25/24 09:33 IMPRESSION: 1. No obstructing renal or ureteral calculi. No hydronephrosis in either kidney. 2. 3 mm nonobstructing RIGHT renal parenchymal calculus. 3. Normal sigmoid colon. 4. No evidence of small or large bowel obstruction. 5. Prior cholecystectomy. 6. Normal appendix. 7. Moderate central canal stenosis L3-4 and severe central canal stenosis L4-5 due to disc bulging with facet arthropathy and ligamentum flavum hypertrophy. This could be followed up with MRI on an elective basis. 8. No other acute findings. Notified BLANCA Britt at 07/25/2024 10:38 AM. Laboratory Results WBC 7.80 10^3/uL (3.29-11.43) 07/25/24 09:42 RBC 5.53 10^6/uL (3.85-5.65) 07/25/24 09:42 Hgb 17.10 g/dL (11.27-16.99) H 07/25/24 09:42 Hct 50.8 % (36-47) H 07/25/24 09:42 MCV 91.9 fl (85-98) 07/25/24 09:42 MCH 30.9 pg (27-33) 07/25/24 09:42 MCHC 33.7 g/dL (30-55) 07/25/24 09:42 RDW 13.2 % (12.1-15.1) 07/25/24 09:42 Plt Count 241 10^3/cmm (157-399) 07/25/24 09:42 MPV 8.6 fL (7.4-10.4) 07/25/24 09:42 Neut % (Auto) 62.8 % 07/25/24 09:42 Lymph % (Auto) 27.9 % 07/25/24 09:42 Wharton % (Auto) 6.4 % 07/25/24 09:42 Eos % (Auto) 2.1 % 07/25/24 09:42 Baso % (Auto) 0.5 % 07/25/24 09:42 Neut # (Auto) 4.90 10^3/uL (1.8-7.7) 07/25/24 09:42 Lymph # (Auto) 2.2 10^3/uL (0.8-4.8) 07/25/24 09:42 Wharton # (Auto) 0.5 10^3/uL (0.2-0.9) 07/25/24 09:42 Eos # (Auto) 0.2 10^3/uL (0.0-0.8) 07/25/24 09:42 Baso # (Auto) 0.0 10^3/uL (0.0-0.1) 07/25/24 09:42 Nucleated RBC % (auto) 0 % 07/25/24 09:42 Nucleated RBCs # 0.0 /100WBC 07/25/24 09:42 Sodium 140 mmol/L (136-145) 07/25/24 09:42 Potassium 4.3 mmol/L (3.5-5.1) 07/25/24 09:42 Chloride 101 mmol/L (98-107) 07/25/24 09:42 Carbon Dioxide 26 mmol/L (22-29) 07/25/24 09:42 Anion Gap 17.3 (5-19) 07/25/24 09:42 BUN 27 mg/dL (8-23) H 07/25/24 09:42 Creatinine 0.7 mg/dL (0.5-0.9) 07/25/24 09:42 GFR Calculation 85.1 mL/min (90-130) L 07/25/24 09:42 Glucose 106 mg/dL (65-115) 07/25/24 09:42 Calculated Osmolality 296 mOsm/kg (285-295) H 01/03/25 09:42 Calcium 9.8 mg/dL (8.5-10.5) 07/25/24 09:42 Total Bilirubin 0.4 mg/dL (0.15-1.2) 07/25/24 09:42 AST 29 U/L (0-32) 07/25/24 09:42 ALT 32 U/L (0-33) 07/25/24 09:42 Alkaline Phosphatase 124 U/L (35-105) H 07/25/24 09:42 Total Protein 8.0 g/dL (6.6-8.7) 07/25/24 09:42 Albumin 4.4 g/dL (3.5-5.2) 07/25/24 09:42 Globulin 3.6 g/dL (1.3-4.6) 07/25/24 09:42 Urine Color Yellow (Yellow) 07/25/24 09:50 Urine Appearance Clear (CLEAR) 07/25/24 09:50 Urine pH 7.0 (5-7) 07/25/24 09:50 Ur Specific [place] 1.010 (1.005-1.030) 07/25/24 09:50 Urine Protein Negative (Negative) 07/25/24 09:50 Urine Glucose (UA) Negative (Normal) 07/25/24 09:50 Urine Ketones Negative (Negative) 07/25/24 09:50 Urine Blood Negative (Negative) 07/25/24 09:50 Urine Nitrate Negative (Negative) 07/25/24 09:50 Urine Bilirubin Negative (Negative) 07/25/24 09:50 Urine Urobilinogen 0.2 mg/dL (Negative) 07/25/24 09:50 Ur Leukocyte Esterase Negative (Negative) 07/25/24 09:50 Urine RBC 0-2 /hpf (0-2) 07/25/24 09:50 Urine WBC 0-5 /hpf (0-5) 07/25/24 09:50 Ur Squamous Epith Cells 0-5 /hpf (0-5) 07/25/24 09:50 Amorphous Sediment Not Reportable 07/25/24 09:50 Urine Bacteria None seen /hpf (NONE) 07/25/24 09:50 Hyaline Casts 0-4 /lpf H 07/25/24 09:50 All radiology interpretation(s) finalized by discharge Discharge Plan Discharge Patient Disposition: Home Clinical Impression: Acute left flank pain Condition: Stable Prescriptions: No Action cetirizine 10 mg tablet 10 mg PO DAILY acyclovir 400 mg tablet 400 mg PO BID fluticasone propionate [24 Hour Allergy Relief] 50 mcg/actuation spray,suspension 2 spray INTRANASAL DAILY celecoxib 200 mg capsule 200 mg PO DAILY atorvastatin 20 mg tablet 20 mg PO DAILY omeprazole 40 mg Capsule,Delayed Release(Dr/Ec) 40 mg PO DAILY Discharge Orders: Discharge ED (Routine); Ordered 07/25/24 Ordered By: Aurelia Bullock Referrals: Maame Worley PA [Primary Care Provider] - Activity Restrictions/Additional Instructions: As we discussed, please follow-up with primary care in the next week or so for continued evaluation if your pain persist. You may return to the emergency department for worsening or severe pain, fevers, repetitive episodes of vomiting, changes in bowel movements, severe burning with urination, generally feeling worse or unwell, or any other concerns you may have. I hope you begin to feel better soon. Coding Level of Care Code ED Ordnance Engineer for Doyle Leary
--- NOTE | 2024-07-25 09:33 | CT_ITS ---
WS: [id number] CT ABDOMEN PELVIS TECHNIQUE: Noncontrast CT of the abdomen and pelvis with coronal and sagittal reformatted images. CLINICAL INFORMATION: L flank pain COMPARISON: None. DLP: 758.[address] scans at [facility] use at least one of these dose optimization techniques: automated e xposure control; mA and/or kV adjustment per patient size (includes targeted exams where dose is matc hed to clinical indication); or iterative reconstruction. FINDINGS: No obstructing renal or ureteral calculi. No hydronephrosis in either kidney. Small RIGHT renal paren chymal calculus measuring 3.5 mm Normal noncontrast liver. Spleen granulomas. Tiny esophageal hernia. Subsegmental atelectasis in the lingula and RIGHT middle lobe. Fatty atrophy of the pancreas. Cholecy stectomy clips. Adrenal glands are normal. Aortic calcification. Normal sigmoid colon. Normal appendix in the RIGHT lower quadrant. Moderate spondylitic changes lumba r spine. Chronic anterior wedging at T11. Mild disc bulging L3-L5. Severe central canal stenosis L4-[address]/CT kidney stone [id number] IMPRESSION: 1. No obstructing renal or ureteral calculi. No hydronephrosis in either kidne y. 2. 3 mm nonobstructing RIGHT renal parenchymal calculus. 3. Normal sigmoid colon. 4. No evidence of small or large bowel obstruction. 5. Prior cholecystectomy. 6. Normal appendix. 7. Moderate central canal stenosis L3-4 and severe central canal stenosis L4-5 due to disc bulging with facet arthropathy and ligamentum flavum hypertrophy. This could be followed up with MRI on an elective basis. 8. No other acute findings. Notified BLANCA Britt at 07/25/2024 10:38 AM.
[2024-07-25 09:47] LABS: Basophils % 0.5 %; Eosinophils # 0.2 10^3/uL (0.0-0.8); Eosinophils % 2.1 %; Hematocrit 50.8 % (36-47); Lymphocytes # 2.2 10^3/uL (0.8-4.8); Lymphocytes % 27.9 %; Mean Corpuscular HGB Conc 33.7 g/dL (30-55); Mean Corpuscular Hemoglobin 30.9 pg (27-33); Mean Corpuscular Volume 91.9 fl (85-98); Mean Platelet Volume 8.6 fL (7.4-10.4); Monocytes # 0.5 10^3/uL (0.2-0.9); Monocytes % 6.4 %; Neutrophils % 62.8 %; Nucleated Red Blood Cells % 0 %; Platelet Count 241 10^3/cmm (157-399); Red Blood Count 5.53 10^6/uL (3.85-5.65); Red Cell Distribution Width 13.2 % (12.1-15.1)
[2024-07-25 09:54] VITALS: BP 108/74; PULSE 77; RESP 16; O2SAT 93
[2024-07-25 09:58] LABS: Bilirubin Urine Negative (Negative); Blood Urine Negative (Negative); Glucose Urine UA Negative (Normal); Ketones Urine Negative (Negative); Leukocyte Esterase Urine Negative (Negative); Nitrate Urine Negative (Negative); Protein Urine Negative (Negative); Urine Appearance Clear (CLEAR); Urine Color Yellow (Yellow); Urobilinogen Urine 0.2 mg/dL (Negative)
[2024-07-25 10:01] LABS: Add Urine Microscopic? YES; Bacteria Urine None Seen /hpf; Hyaline Casts Urine 0-4 /lpf; RBC Urine 0-2 /hpf (0-2); Squamous Epithelial Cell Urine 0-5 /hpf (0-5); WBC Urine 0-5 /hpf (0-5)
[2024-07-25 10:03] LABS: Alanine Aminotransferase 32 U/L (0-33); Albumin Level 4.4 g/dL (3.5-5.2); Alkaline Phosphatase 124 U/L (35-105); Anion Gap 17.3 (5-19); Aspartate Amino Transferase 29 U/L (0-32); Blood Urea Nitrogen 27 mg/dL (8-23); Calcium 9.8 mg/dL (8.5-10.5); Carbon Dioxide 26 mmol/L (22-29); Chloride 101 mmol/L (98-107); Globulin 3.6 g/dL (1.3-4.6); Glomerular Filtration Rate 85.1 mL/min (90-130); Glucose 106 mg/dL (65-115); Osmolality Calculated 296 mOsm/kg (285-295); Potassium 4.3 mmol/L (3.5-5.1); Sodium 140 mmol/L (136-145); Total Bilirubin 0.4 mg/dL (0.15-1.2)
[2024-07-25] MEDS: ondansetron 2 mg/ML SDV 2 mL 4 MG IVP (10:13)
[2024-07-25] MEDS: ketorolac 60 mg/2 mL INJ 30 MG IVP (10:13)
[2024-07-25 10:52] VITALS: RESP 16; O2SAT 96
[2024-07-25] MEDS: morphine 4 mg/mL SDV 1 mL IVP (10:52)
[2024-07-25 10:54] VITALS: BP 134/82; PULSE 79; RESP 16; O2SAT 96
[2024-07-25 12:50] VITALS: BP 129/75; PULSE 80; RESP 16; O2SAT 96
== END 2024-07-25 11:33 | disposition home or self-care (01) ==
PROVIDERS: Emergency Provider Physician Assistant; PCP Physician Assistant
DX: R10.9 Unspecified abdominal pain (principal)
CPT/HCPCS: 36415; 74176; 80053; 81001; 85025; 96374; 96375; 99285; J1885; J2270; J2405

== ENCOUNTER 2025-04-02 09:08 | Day surgery (SDC) | payer OTHER, SELFPAY ==
[2025-04-02] VITALS (10 sets, daily range): BP systolic 101–116; BP diastolic 62–71; PULSE 65–82; RESP 16–24; TEMP 36.2–36.6; O2SAT 92–97
--- NOTE | 2025-04-02 09:32 | W.PM.OPSUD ---
Surgery/Procedure H&P Update DATE OF PROCEDURE: April 02, 2025 DATE H&P PERFORMED: 03/19/25 H&P UPDATE INFORMATION: I have reviewed H&P completed within last 30 days, I have examined patient prior to procedure and No changes to prior documentation PREOP DIAGNOSIS: Left carpal tunnel syndrome, left cubital tunnel syndrome PLANNED PROCEDURE: Operation Date: 04/02/25 10:10 Proposed Procedures p Carpal Tunnel Release(Left) - Shravan Wright MD s Cubital Tunnel Release(Left) - Shravan Wright MD
--- NOTE | 2025-04-02 09:46 | ANES.PREANE2 ---
Pre-Anesthetic Assessment Height/Weight: Height 1.7 m Weight 77.111 kg Temp Pulse Resp Pulse Ox O2 Del Method 97.1 F L 82 16 96 Room Air 04/02/25 09:04/02/25 09:04/02/25 09:28 04/02/25 09:04/02/25 09:28 Preop Diagnosis: Left carpal tunnel syndrome, left cubital tunnel syndrome Operation Date: 04/02/25 10:10 Proposed Procedures p Carpal Tunnel Release(Left) - Shravan Wright MD s Cubital Tunnel Release(Left) - Shravan Wright MD Last intake: Intake Last Liquid Date 04/01/25 Last Liquid Time 22:00 Last Solid Date 04/01/25 Last Solid Time 20:00 Social No alcohol and No tobacco Exam alert, oriented x 3, clear to auscultation bilaterally and regular rate & rhythm Airway Submandibular: within normal limits Cervical ROM: within normal limits Mallampati: Class I History/ROS No significant history except as noted GI Gastroesophageal Reflux Disease (well controlled) Neuropsych Anxiety and Dementia Anesthetic Plan ASA status: 2 Anesthesia: General and Regional (specify below) (Left Supraclavicular block ) Medications/Allergies Home Medications ?Medication ?Instructions ?Recorded ?Confirmed ?Last Taken ?Type atorvastatin 20 mg tablet 20 mg PO DAILY 02/24/22 04/02/25 03/31/25 History celecoxib 200 mg capsule 200 mg PO DAILY 02/24/22 04/02/25 03/25/25 History omeprazole 40 mg capsule,delayed 40 mg PO DAILY 02/26/24 04/02/25 04/02/25 History release acyclovir 400 mg tablet 400 mg PO BID 07/25/24 04/02/25 04/01/25 History cetirizine 10 mg tablet 10 mg PO DAILY 07/25/24 04/02/25 03/31/25 History fluticasone propionate 50 2 spray intranasal DAILY 07/25/24 04/02/25 Unknown History mcg/actuation nasal spray,suspension (24 Hour Allergy Relief) triamcinolone acetonide 0.5 % 1 applic topical BID 03/19/25 04/02/25 Unknown History topical cream Allergies Allergy/AdvReac Type Severity Reaction Status Date / Time No Known Allergies Allergy Verified 04/01/25 14:42 [facility] Anesthesia Medical History MDD (major depressive disorder), recurrent, in partial remission Major depressive disorder in partial remission Anxiety Depression Surgical History No pertinent past surgical history Social History Smoking and tobacco/nicotine status: never used tobacco/nicotine
[2025-04-02] MEDS: ceFAZolin 2,000 mg SDV 2000 MG IVP (10:04)
--- NOTE | 2025-04-02 10:50 | P.OP_ITS ---
Operative Report Date of procedure: April 02, 2025 Surgeon: Shravan Wright MD Procedure: Preoperative diagnosis: Cubital and carpal tunnel syndrome of the left upper extremity Postoperative diagnosis: Same Procedure: Cubital tunnel release and carpal tunnel release left upper extremity Surgeon: Shravan Wright MD Skein Yard Drier: KIMMIE Barnard Member's assistance was necessary for positioning the patient, assistance during the procedure, closure of the wounds, placement of dressings Anesthesia: General With preoperative regional block EBL: None Tourniquet time: 26 minutes at 250 mmHg Indications: Charline is a 64-year-old white female was referred in from neurology with positive nerve conduction test indicating compression of the cubital tunnel and carpal tunnels of bilateral upper extremities. Patient is complaining more symptoms off the left arm. Clinical exam was consistent with cubital tunnel and carpal tunnel both arms and therefore at this time she was offered surgical release of this. Patient is requesting a left arm first since this is more symptomatic. All risk benefits treatment alternatives were discussed with her. Discussion was had with her that it may take up to 17 weeks to know how well release is going to work for each of these nerves and that she may have permanent nerve damage already due to compression that she is underwent. She is understanding of this and wished to proceed with surgical intervention. Procedure: After obtaining her consent patient is had preoperative regional block done by anesthesia on the left upper extremity. Patient then taken to the operating room placed up table supine position general segments are. Once Konesky was achieved left shoulder and arm were prepped and draped usual fashion. Once surgical timeout had taken place a sterile tourniquet was placed around the proximal left arm. Esmarch was used to exsanguinate the arm and then pneumatic cuff inflated 2 and 50 mmHg. Curvilinear incision was directed over the medial aspect of the medial epicondyle of the left elbow. Sharp dissected gone down subcutaneous tissue electrocautery used to hemostasis. Blunt and sharp dissection with Metzenbaum scissors take it all the way down to the fascia of the cubital tunnel. By gentle traction and blunt sharp dissection with Metzenbaum scissors cubital tunnel was opened and divided along the superior surface of the ulnar nerve. Again with being careful to protect the nerve the entire time ulnar nerve was released all the way up to the fascial arcade above the cubital tunnel. It was also dissected down into the flexor bundle. It rachael uld be noted that there was muscle extending almost all the way into the cubital tunnel from the flexor bundle at this time. By digital palpation no bands of fascia have been removed from the ulnar nerve over the course of this dissection. No injuries identified with the ulnar nerve. Wound was then washed with copious months of sterile irrigation. Deep structure reapproximated with 3-0 Vicryl [id number] sutures. Tension turned towards the carpal tunnel region of the left hand. Longitudinal incision made from distal flexion crease on the volar surface of the wrist distally along the ulnar border along the mid palmar crease. Sharp dissecting down down to subcutaneous tissue. Ragnell retractors were used to hold the skin edges back and sharp dissection was taken all the way down to transverse carpal ligament with a #15 blade. #15 blade then was used to open up the transverse carpal ligament into the carpal tunnel. Once released structures were welled up as under pressure. Remainder of the release was done with Metzenbaum scissors and blunt sharp fashion both proximally and distally taking care to protect the median nerve. Once released wound was washed with sterile irrigation. Palmar incision was then closed with 3-0 Prolene running horizontal mattress suture. Medial elbow incision was also closed with 3-0 Prolene. Pneumatic cuff deflated at this time. Wounds are cleaned and dry dressed with Xeroform gauze sterile gauze dressing Kerlix wrap and an [place] wrap for compression. Patient awakened transferred cover in stable condition
--- NOTE | 2025-04-02 11:50 | ANE.PACU2 ---
Inpatient post-anesthesia follow up: Airway intact: Yes Vital signs: Temperature 97.8 F Pulse Rate 71 Respiratory Rate 20 Blood Pressure 116/69 Pulse Oximetry 95 Oxygen Delivery Me thod Room Air Oxygen Flow Rate Fraction of Inspir ed Oxygen Hydration adequate: Yes Nausea and vomiting: No Pain level: controlled
== END 2025-04-02 12:15 | disposition home or self-care (01) ==
PROVIDERS: PCP Physician Assistant; Visit Provider Orthopaedic Surgery
PROC: (CPT 64721; principal; 2025-04-02 10:00)
PROC: (CPT 64718; 2025-04-02 10:00)
DX: G56.02 Carpal tunnel syndrome, left upper limb (principal); G56.22 Lesion of ulnar nerve, left upper limb; K21.9 Gastro-esophageal reflux disease without esophagitis; F41.9 Anxiety disorder, unspecified; F03.90 Unspecified dementia, unspecified severity, without behavioral disturbance, psychotic disturbance, mood disturbance, and anxiety; F32.9 Major depressive disorder, single episode, unspecified
CPT/HCPCS: 64718; 64721; J0690; J1100; J2250; J2405; J2704; J2795; J3010; J7030; J9999

== ENCOUNTER 2025-04-22 08:57 | Day surgery (SDC) | payer OTHER, SELFPAY ==
[2025-04-22] VITALS (13 sets, daily range): BP systolic 95–150; BP diastolic 62–113; PULSE 65–78; RESP 10–20; TEMP 35.6–36.6; O2SAT 93–98; BMI 26.6
--- NOTE | 2025-04-22 10:04 | ANES.PREANE2 ---
Pre-Anesthetic Assessment Height/Weight: Height 5 ft 7 in Weight 170 lb Temp Pulse Resp BP Pulse Ox O2 Del Method 97.9 F 78 18 150/113 98 Room Air 04/22/25 09:30 04/22/25 09:30 04/22/25 09:30 04/22/25 09:30 04/22/25 09:30 04/22/25 09:30 Preop Diagnosis: Cubital tunnel syndrome Operation Date: 04/22/25 10:35 Proposed Procedures p RIGHT Carpal Tunnel Release(Right) - Shravan Wright MD s RIGHT Cubital Tunnel Release(Right) - Shravan Wright MD Was Beta Rg taken within 24 hours: N/A Was Clonidine taken within 24 hours: N/A Last intake: Intake Last Liquid Date 04/21/25 Last Liquid Time 20:00 Last Solid Date 04/21/25 Last Solid Time 20:00 Social No alcohol and No tobacco Exam alert, oriented x 3, clear to auscultation bilaterally and regular rate & rhythm Airway Submandibular: within normal limits Cervical ROM: within normal limits Mallampati: Class III Dentition: false Anesthetic Plan ASA status: 3 Anesthesia: General and Regional (specify below) Other: No prior issues with anesthesia NPO since yesterday evening History of GERD on omeprazole MDD Denies any cardiac or pulmonary issues Preop BP 150/113 METs greater than 4 Plan for general anesthesia with preop nerve block Medications/Allergies Home Medications ?Medication ?Instructions ?Recorded ?Confirmed ?Last Taken ?Type atorvastatin 20 mg tablet 20 mg PO DAILY 02/24/22 04/21/25 04/21/25 History celecoxib 200 mg capsule 200 mg PO DAILY 02/24/22 04/21/25 04/21/25 History omeprazole 40 mg capsule,delayed 40 mg PO DAILY 02/26/24 04/21/25 04/21/25 History release acyclovir 400 mg tablet 400 mg PO BID 07/25/24 04/21/25 04/21/25 History cetirizine 10 mg tablet 10 mg PO DAILY 07/25/24 04/21/25 03/31/25 History fluticasone propionate 50 2 spray intranasal DAILY 07/25/24 04/21/25 Unknown History mcg/actuation nasal spray,suspension (24 Hour Allergy Relief) triamcinolone acetonide 0.5 % 1 applic topical BID 03/19/25 04/21/25 Unknown History topical cream hydrocodone 5 mg-acetaminophen 325 1 tab PO Q6H PRN pain #30 tabs 04/02/25 04/21/25 04/21/25 Rx mg tablet Allergies Allergy/AdvReac Type Severity Reaction Status Date / Time No Known Allergies Allergy Verified 04/21/25 15:14 Current Medications Generic Name Dose Route Start Last Admin Trade Name Freq PRN Reason Stop Dose Admin Sodium Chloride 1,000 mls @ 30 mls/hr 04/22/25 09:15 04/22/25 09:55 Sodium Chloride 0.9% IV 04/23/25 09:14 30 mls/hr .Q24H DAVON Administration PFSH Anesthesia Medical History MDD (major depressive disorder), recurrent, in partial remission Major depressive disorder in partial remission Anxiety Depression Surgical History No pertinent past surgical history Social History Smoking and tobacco/nicotine status: never used tobacco/nicotine
--- NOTE | 2025-04-22 10:26 | ANES.PROC ---
Anesthesia Procedures Procedure/Date: 04/22/25 Nerve Block ^: Nerve Block 1: Main Anesthesia: other (2 mg Versed and 100 mcg fentanyl) Time Out Performed: Yes Consent: requested by attending/covering physician Laterality: Right Nerve block location: supraclavicular Anesthesia monitors applied: pulse oximetry, EKG, BP cuff and oxygen Nerve block position: supine Anesthetic Used: ropivicaine 0.5% Amount of anesthesia used (mL): 30 Ultrasound used to: recognize landmarks Nerve Stimulator Used?: Yes Interscalene/Femoral BLK: other needle (pjunk 4inch) Injection: neg aspiration of heme Patient Tolerated Procedure: well Complications: none Additional Comments: Decadron 4 mg added to block
--- NOTE | 2025-04-22 10:37 | W.PM.OPSUD ---
Surgery/Procedure H&P Update DATE OF PROCEDURE: April 22, 2025 DATE H&P PERFORMED: 04/14/25 H&P UPDATE INFORMATION: I have reviewed H&P completed within last 30 days, I have examined patient prior to procedure and No changes to prior documentation PREOP DIAGNOSIS: Cubital tunnel syndrome and carpal tunnel syndrome PLANNED PROCEDURE: Operation Date: 04/22/25 10:35 Proposed Procedures p RIGHT Carpal Tunnel Release(Right) - Shravan Wright MD s RIGHT Cubital Tunnel Release(Right) - Shravan Wright MD
[2025-04-22] MEDS: ceFAZolin 2,000 mg SDV 2000 MG IVP (10:45)
--- NOTE | 2025-04-22 11:29 | PM.OP ---
Operative Report Date of procedure: April 22, 2025 Surgeon: Shravan Wright MD Procedure: Preoperative diagnosis: Cubital tunnel and carpal tunnel syndrome on the right arm Postoperative diagnosis: Same Procedure: Right cubital tunnel release with partial medial epicondylectomy and right carpal tunnel release Surgeon: Shravan Wright MD Anesthesia: General Tourniquet time: 31 minutes at 250 mmHg EBL: None Indications: Charline is a 64-year-old white female was previously had a left carpal tunnel and cubital tunnel release secondary to positive nerve conduction test. She is also had symptoms for both of these in bilateral arms. She has had good success after the releases in her left arm and would like to have the right arm also released. Patient is well aware of all risk benefits treatment alternatives. Patient understands it may take up to 17 weeks before we know if decompressions have helped completely. She may already have permanent nerve damage at this time. Procedure: After obtaining her consent patient taken to the operating room placed up table supine position general anesthetic administered. Once good anesthesia was achieved medicos was placed on the proximal right arm and right arm was prepped and draped usual fashion. After surgical timeout longitudinal incision made on the palmar surface of the right wrist extending from distal flexion crease of the wrist distally approxione and 1/2 cm just ulnar to the mid palmar crease. Sharp dissected gone down to subcutaneous tissue then on down the transverse carpal ligament. Transverse carpal ligament divided along the course of the skin incision until down into the carpal tunnel region. At this point in a blunt and sharp fashion using Metzenbaum scissors ligament was divided both proximally and distally without any difficulties. Attention was then turned towards the medial epicondyle/cubital tunnel of the elbow. A curvilinear incision was made centered over the medial epicondyle. Sharp dissection taken down to subcutaneous tissue electrocautery is hemostasis. Blunt sharp dissection with Metzenbaum scissors were taken all the way down to the fascia overlying the ulnar nerve. Once down to the sheath this was divided bluntly and sharply with the Metzenbaum scissors all the way approximately several centimeters and into the muscle belly of the flexor bundle. This was found to be very close to the medial epicondyle. Once dissected out and free the ulnar nerve demonstrated no abnormalities. However there was a hook of bone that held the ulnar nerve tightly in the cubital tunnel therefore at this time is decided to do a partial medial epicondylectomy to decompress the nerve further. Soft tissues were raised off the medial epicondyle to expose the bony surface. During this entire time the ulnar nerves were protected. Using small osteotome his medial epicondylectomy was undertaken and done. Soft tissues that were spared were then used to cover this raw bone using 3-0 Vicryl [id number] sutures. At this point subcutaneous tissue was closed with 3-0 Vicryl interrupted sutures. Skin was closed with running 3-0 Prolene horizontal mattress sutures. Carpal tunnel was closed with 3-0 Prolene running horizontal mattress sutures also. Pneumatic cuff is deflated. Wounds were then dressed with Xeroform gauze sterile gauze dressing Kerlix wrap and [place] wrap for compression. Patient awakened transferred cart room in stable condition
[2025-04-22] MEDS: HYDROcodone-acetaminophen 5-325 mg Tablet 1 TAB PO (12:45)
[2025-04-22] MEDS: fentaNYL 50 mcg/mL INJ 2mL IVP (12:56)
--- NOTE | 2025-04-22 14:05 | ANE.PACU2 ---
Inpatient post-anesthesia follow up: Airway intact: Yes Vital signs: Temperature 97.3 F Pulse Rate 66 Respiratory Rate 18 Blood Pressure 131/80 Pulse Oximetry 94 Oxygen Delivery Me thod Room Air Oxygen Flow Rate Fraction of Inspir ed Oxygen Hydration adequate: Yes Nausea and vomiting: No Pain level: 1 Mental status: Baseline
== END 2025-04-22 14:05 | disposition home or self-care (01) ==
PROVIDERS: PCP Physician Assistant; Visit Provider Orthopaedic Surgery
PROC: (CPT 64721; principal; 2025-04-22 10:35)
PROC: (CPT 64718; 2025-04-22 10:35)
DX: G56.01 Carpal tunnel syndrome, right upper limb (principal); G56.21 Lesion of ulnar nerve, right upper limb; K21.9 Gastro-esophageal reflux disease without esophagitis; F32.9 Major depressive disorder, single episode, unspecified; Z79.891 Long term (current) use of opiate analgesic; F41.8 Other specified anxiety disorders
CPT/HCPCS: 64718; 64721; J0690; J1100; J1885; J2250; J2405; J2704; J3010; J7030; J9999

== ENCOUNTER 2025-06-08 15:33 | Outpatient (CLI) | payer OTHER, SELFPAY ==
--- NOTE | 2025-06-08 | MM_ITS ---
WS: [id number] BILATERAL 3D TOMOSYNTHESIS DIGITAL SCREENING MAMMOGRAPHY WITH CAD CLINICAL INFORMATION: ANNUAL SCREENING HISTORY: Screening mammogram. No current complaints. COMPARISON: 2023 TECHNIQUE: Bilateral CC and MLO views. FINDINGS: Scattered fibroglandular densities bilaterally. No suspicious focal mass, asymmetry, calcifications, or architectural distortion. No evidence of malignancy. Lucent centered calcification RIGHT breast MM/MM scr BI tomosynthesis [id number] IMPRESSION: DENSITY: There are scattered areas of fibroglandular density. BI-RADS: 2 - Benign. FOLLOW UP: 1 Year Follow-up Recommend return to annual screening mammography.
== END 2025-06-08 15:34 | disposition home or self-care (01) ==
LOC: RAD 15:33
PROVIDERS: PCP Physician Assistant; Visit Provider Physician Assistant
DX: Z12.31 Encounter for screening mammogram for malignant neoplasm of breast (principal); R92.323 Mammographic fibroglandular density, bilateral breasts; R92.1 Mammographic calcification found on diagnostic imaging of breast
CPT/HCPCS: 77063; 77067

== ENCOUNTER 2025-06-24 15:50 | Outpatient (CLI) | payer OTHER, SELFPAY ==
--- NOTE | 2025-06-24 16:15 | CT_ITS ---
WS: [id number] LDCT LUNG CANCER SCREENING TECHNIQUE: Noncontrast CT of the chest with coronal and sagittal reformatted images. CLINICAL INFORMATION: NICOTINE DEPENDENCE, CIGARETTES COMPARISON: 2023 DLP: 85.00 mGy.cm DIvol: Mean CTDIvol: 1.30 (mGy) All CT scans at [facility] use at least one of these dose optimization techniques: automated exposure control; mA and/or kV adjustment per patient size (includes targeted exams where dose is matched to clinical indication); or iterative reconstruction. FINDINGS: Hyperinflation. Calcified granuloma LEFT lower lobe. Stable bronchiectasis RIGHT middle lobe. Small RIGHT perifissural nodule. No new suspicious pulmonary parenchymal normalities. Aortic calcification. No mediastinal or hilar lymphadenopathy. No axillary lymphadenopathy. Small esophageal hiatal hernia. Cholecystectomy clips. CT/CT lung screening [id number] IMPRESSION: LUNG-RADS: 2-Benign Appearance or Behavior FOLLOW UP: 12 Month: Continue annual screening with LDCT
== END 2025-06-24 15:51 | disposition home or self-care (01) ==
LOC: RAD 15:51
PROVIDERS: PCP Physician Assistant; Visit Provider Physician Assistant
DX: Z12.2 Encounter for screening for malignant neoplasm of respiratory organs (principal); F17.210 Nicotine dependence, cigarettes, uncomplicated; I70.0 Atherosclerosis of aorta; Z90.49 Acquired absence of other specified parts of digestive tract; J98.4 Other disorders of lung; J47.9 Bronchiectasis, uncomplicated
CPT/HCPCS: 71271